=== PATIENT | female | born 1985 | race Caucasian/White ===

== ENCOUNTER 2016-05-05 18:56 | Emergency (ER) | payer SELFPAY ==
[~2016-05-05] VITALS: Ht 154.9 cm; Wt 79.5 kg
[2016-05-05 18:59] VITALS: BP 140/86; TEMP 97.9
[2016-05-05] MEDS ORDERED: FLEXERIL 1010 MG/TAB PO (19:52)
[2016-05-05 20:23] VITALS: PULSE 75
== END 2016-05-05 20:24 | disposition home or self-care (01) ==
LOC: COL.ER 18:56
DX: M62.838 Other muscle spasm (principal); M54.2 Cervicalgia
CPT/HCPCS: J1885